=== PATIENT | male | born 1950 | race Two or more races ===

== ENCOUNTER 2019-11-09 20:30 | Inpatient (IN) | payer SELFPAY ==
[~2019-11-09] VITALS: Ht 157.5 cm; Wt 89.8 kg
[2019-11-09] MEDS ORDERED: AZITHROMYCIN 500 MG in DEXT 5% WATER 250 ML IV ONE (22:00)
[2019-11-09] MEDS ORDERED: CEFTRIAXONE 1 G PREMIX 50 ML IV ONE (22:00)
[2019-11-09] MEDS ORDERED: SODIUM CHLORIDE 0.9% 1000ML BAG (SEPSIS BOLUS) IV ONE (22:00)
[2019-11-09] MEDS ORDERED: SODIUM CHLORIDE 0.9% 1,000 ML IV ONE (22:14)
[2019-11-09] MEDS ORDERED: ACETAMINOPHEN 325MG TABLET PO ONE (22:15)
[2019-11-09 22:28] LABS: BG BASE EXCESS -2.1 mmol/L (-2.0-2.0); BG DEOXYHEMOGLOBIN 16.1 % (0.0-5.0); BG FRACTION INSPIRED OXYGEN 21; BG HCO3 ACT 20.4 mmol/L (22.0-26.0); BG METHEMOGLOBIN 0.3 % (0.0-1.5); BG OXYGEN SATURATION 83.7 % (92.0-98.5); BG OXYHEMOGLOBIN 82.6 % (94.0-97.0); BG PCO2 29.2 mmHg (35.0-45.0); BG PH 7.462 (7.350-7.450); BG PO2 46.2 mmHg (75.0-100.0); BG SAMPLE SITE RIGHT RADIAL; BG TOTAL HEMOGLOBIN 14.1 g/dL (12.0-18.0); BG VENT MODE ROOM AIR
[2019-11-09 23:24] LABS: BG BASE EXCESS -2.2 mmol/L (-2.0-2.0); BG DEOXYHEMOGLOBIN 5.6 % (0.0-5.0); BG FRACTION INSPIRED OXYGEN 70; BG HCO3 ACT 20.2 mmol/L (22.0-26.0); BG METHEMOGLOBIN 0.1 % (0.0-1.5); BG OXYGEN SATURATION 94.3 % (92.0-98.5); BG OXYHEMOGLOBIN 93.3 % (94.0-97.0); BG PCO2 28.9 mmHg (35.0-45.0); BG PH 7.462 (7.350-7.450); BG PO2 70.9 mmHg (75.0-100.0); BG SAMPLE SITE RIGHT RADIAL; BG TOTAL HEMOGLOBIN 14.8 g/dL (12.0-18.0); BG VENT MODE NASAL CANNULA
[2019-11-09 23:40] LABS: HEMATOCRIT. 39.9 % (42.0-52.0); HEMOGLOBIN. 13.6 g/dL (14.0-18.0); MEAN CORPUSCULAR HEMOGLOBIN 30.6 pg (28.0-32.0); MEAN PLATELET VOLUME 7.5 fl (7.4-10.4); PLATELET 275 x1000/uL (130-400); RED BLOOD CELL COUNT 4.44 mill/uL (4.7-6.1); RED CELL DISTRIBUTION WIDTH 14.8 % (11.6-14.6)
[2019-11-09 23:46] LABS: CHLORIDE 97 mEq/L (98-107)
[2019-11-09 23:47] LABS: CLARITY URINE CLEAR (CLEAR); COLOR URINE YELLOW (YELLOW); KETONES URINE TRACE (NEGATIVE); LEUKOCYTE ESTERASE URINE NEGATIVE (NEGATIVE); NITRITE URINE NEGATIVE (NEGATIVE); OCCULT BLOOD URINE 1+ (NEGATIVE); PROTEIN URINE 2+ (NEGATIVE); SPECIFIC GRAVITY URINE 1.021 (1.005-1.030)
[2019-11-09 23:50] LABS: INR 1.1; PARTIAL THROMBOPLASTIN TIME 34.2 sec (23.4-31.0); PROTHROMBIN TIME 11.5 sec (9.6-11.0)
[2019-11-10] MEDS ORDERED: ENOXAPARIN 80MG/0.8ML SYR SUBCUT ONE (00:30)
[2019-11-10] MEDS ORDERED: DEXAMETHASONE 10 MG/ML VIAL IV ONE (00:30)
[2019-11-10] MEDS ORDERED: CEFTRIAXONE 1 G PREMIX 50 ML IV SCH (00:45)
[2019-11-10] MEDS ORDERED: DIPHENHYDRAMINE 50MG/ML VIAL IV PRN (00:45)
[2019-11-10] MEDS ORDERED: GUAIFENESIN 200MG/10ML SUGAR FREE UDC PO PRN (00:45)
[2019-11-10] MEDS ORDERED: ONDANSETRON HCL 4MG/2ML INJ IV PRN (00:45)
[2019-11-10] MEDS ORDERED: HYDROCODONE/ACETAMINOPHEN 10/325MG TABLET PO PRN (00:45)
[2019-11-10] MEDS ORDERED: IPRATROPIUM/ALBUTEROL 0.5-3(2.5)MG/3ML NEB HHN PRN (00:45)
[2019-11-10] MEDS ORDERED: AZITHROMYCIN 500 MG in DEXT 5% WATER 250 ML IV SCH ×2 (00:45→23:00)
[2019-11-10] MEDS ORDERED: CLONIDINE 0.1MG TABLET PO PRN (00:45)
[2019-11-10] MEDS ORDERED: MORPHINE SULFATE 2 MG/ML CPJ (NOT FOR IM USE) IV PRN (00:45)
[2019-11-10] MEDS ORDERED: MAGNESIUM/ALUMINUM HYDROXIDE/SIMETHICONE 30ML UDC PO PRN (00:45)
[2019-11-10] MEDS ORDERED: ENOXAPARIN 40MG/0.4ML SYR SUBCUT SCH (00:45)
[2019-11-10] MEDS ORDERED: DOCUSATE SODIUM 100MG CAPSULE PO PRN (00:45)
[2019-11-10] MEDS ORDERED: HYDRALAZINE 20MG/ML VIAL IV PRN (00:45)
[2019-11-10] MEDS: LORAZEPAM 2MG/ML CPJ IV PRN (01:51)
[2019-11-10 03:42] LABS: ATYPICAL LYMPHOCYTES 2; PLATELET ESTIMATE NORMAL
[2019-11-10] MEDS: SODIUM CHLORIDE 0.9% INJ 3ML FLUSH IVF SCH ×3 (06:00→22:14)
[2019-11-10 10:00] VITALS: BP 130/67
[2019-11-10 12:00] VITALS: BP 108/68
[2019-11-10 16:00] VITALS: BP 112/67
[2019-11-10 20:00] VITALS: BP 110/73
[2019-11-10] MEDS ORDERED: CEFTRIAXONE 1,000 MG in DEXTROSE 5% WATER 50 ML IV SCH (22:00)
[2019-11-10] MEDS: CEFTRIAXONE 1,000 MG in DEXTROSE 5% WATER 50 ML IV SCH (22:14)
[2019-11-10] MEDS: AZITHROMYCIN 500 MG in DEXT 5% WATER 250 ML IV SCH (23:06)
[2019-11-11] VITALS: BP 118/73
[2019-11-11 04:00] VITALS: BP 104/69
[2019-11-11] MEDS: SODIUM CHLORIDE 0.9% INJ 3ML FLUSH IVF SCH ×3 (06:10→21:13)
[2019-11-11 07:35] LABS: EOSINOPHILS % 0.1 % (0.0-5.0); HEMATOCRIT. 38.5 % (42.0-52.0); HEMOGLOBIN. 13.2 g/dL (14.0-18.0); LYMPHOCYTES % 7.3 % (20.0-50.0); MEAN CORPUSCULAR HEMOGLOBIN 30.5 pg (28.0-32.0); MEAN CORPUSCULAR VOLUME 89.2 fL (80.0-94.0); MEAN PLATELET VOLUME 7.5 fl (7.4-10.4); MONOCYTES % 4.6 % (2.0-8.0); PLATELET 354 x1000/uL (130-400); RED BLOOD CELL COUNT 4.31 mill/uL (4.7-6.1); RED CELL DISTRIBUTION WIDTH 14.5 % (11.6-14.6)
[2019-11-11 07:57] LABS: CHLORIDE 105 mEq/L (98-107)
[2019-11-11 08:00] VITALS: BP 97/76
[2019-11-11] MEDS: ENOXAPARIN 40MG/0.4ML SYR SUBCUT SCH (09:04)
[2019-11-11 10:18] LABS: BG BASE EXCESS -3.2 mmol/L (-2.0-2.0); BG CARBOXYHEMOGLOBIN 0.6 % (0.5-1.5); BG DEOXYHEMOGLOBIN 11.6 % (0.0-5.0); BG FRACTION INSPIRED OXYGEN 60; BG HCO3 ACT 19.8 mmol/L (22.0-26.0); BG METHEMOGLOBIN 0.1 % (0.0-1.5); BG OXYGEN SATURATION 88.3 % (92.0-98.5); BG OXYHEMOGLOBIN 87.7 % (94.0-97.0); BG PCO2 30.3 mmHg (35.0-45.0); BG PH 7.433 (7.350-7.450); BG PO2 54.1 mmHg (75.0-100.0); BG SAMPLE SITE RIGHT RADIAL; BG TOTAL HEMOGLOBIN 14.8 g/dL (12.0-18.0); BG VENT MODE NASAL CANNULA
[2019-11-11 12:00] VITALS: BP 112/69
[2019-11-11] MEDS: DEXAMETHASONE 4MG TABLET PO SCH (13:34)
[2019-11-11 16:00] VITALS: BP 115/75
[2019-11-11] MEDS ORDERED: REMDESIVIR 200 MG in SODIUM CHLORIDE 0.9% 250 ML IV NR (18:00)
[2019-11-11 20:00] VITALS: BP 106/63
[2019-11-11] MEDS: CEFTRIAXONE 1,000 MG in DEXTROSE 5% WATER 50 ML IV SCH (21:13)
[2019-11-11] MEDS: AZITHROMYCIN 500 MG in DEXT 5% WATER 250 ML IV SCH (22:11)
[2019-11-11] MEDS: ACETAMINOPHEN 325MG TABLET PO PRN (22:25)
[2019-11-12] VITALS: BP 139/85
[2019-11-12 04:00] VITALS: BP 105/72
[2019-11-12] MEDS: SODIUM CHLORIDE 0.9% INJ 3ML FLUSH IVF SCH ×3 (05:41→21:09)
[2019-11-12] MEDS: ENOXAPARIN 40MG/0.4ML SYR SUBCUT SCH (08:10)
[2019-11-12] MEDS: DEXAMETHASONE 4MG TABLET PO SCH (08:10)
[2019-11-12 08:30] VITALS: BP 130/70
[2019-11-12 09:32] LABS: BG BASE EXCESS -2.9 mmol/L (-2.0-2.0); BG CARBOXYHEMOGLOBIN 0.2 % (0.5-1.5); BG DEOXYHEMOGLOBIN 10.2 % (0.0-5.0); BG FRACTION INSPIRED OXYGEN 80; BG HCO3 ACT 19.8 mmol/L (22.0-26.0); BG METHEMOGLOBIN 0.3 % (0.0-1.5); BG OXYGEN SATURATION 89.7 % (92.0-98.5); BG OXYHEMOGLOBIN 89.3 % (94.0-97.0); BG PCO2 29.4 mmHg (35.0-45.0); BG PH 7.447 (7.350-7.450); BG PO2 57.5 mmHg (75.0-100.0); BG SAMPLE SITE RIGHT BRACHIAL; BG VENT MODE MASK - SIMPLE
[2019-11-12 12:00] VITALS: BP 126/83
[2019-11-12 16:00] VITALS: BP 129/88
[2019-11-12] MEDS: REMDESIVIR 100 MG in SODIUM CHLORIDE 0.9% 250 ML IV SCH (17:01)
[2019-11-12 20:00] VITALS: BP 131/84
[2019-11-12] MEDS: CEFTRIAXONE 1,000 MG in DEXTROSE 5% WATER 50 ML IV SCH (21:09)
[2019-11-12] MEDS: AZITHROMYCIN 500 MG in DEXT 5% WATER 250 ML IV SCH (22:57)
[2019-11-13] VITALS: BP 137/97
[2019-11-13] MEDS: ACETAMINOPHEN 325MG TABLET PO PRN ×2 (02:03→17:10)
[2019-11-13] MEDS: LORAZEPAM 2MG/ML CPJ IV PRN (02:11)
[2019-11-13 04:00] VITALS: BP 114/68
[2019-11-13 06:12] LABS: HEMATOCRIT. 36.8 % (42.0-52.0); HEMOGLOBIN. 12.6 g/dL (14.0-18.0); MEAN CORPUSCULAR HEMOGLOBIN 30.8 pg (28.0-32.0); MEAN CORPUSCULAR VOLUME 89.9 fL (80.0-94.0); MEAN PLATELET VOLUME 7.1 fl (7.4-10.4); PLATELET 451 x1000/uL (130-400); RED CELL DISTRIBUTION WIDTH 14.7 % (11.6-14.6)
[2019-11-13 06:18] LABS: CHLORIDE 109 mEq/L (98-107)
[2019-11-13] MEDS: SODIUM CHLORIDE 0.9% INJ 3ML FLUSH IVF SCH ×4 (06:54→22:20)
[2019-11-13 08:30] VITALS: BP 115/72
[2019-11-13] MEDS: ENOXAPARIN 40MG/0.4ML SYR SUBCUT SCH ×2 (08:40→20:49)
[2019-11-13] MEDS: DEXAMETHASONE 4MG TABLET PO SCH (08:40)
[2019-11-13 12:30] VITALS: BP 129/82
[2019-11-13 16:00] VITALS: BP 120/78
[2019-11-13] MEDS: REMDESIVIR 100 MG in SODIUM CHLORIDE 0.9% 250 ML IV SCH (17:03)
[2019-11-13 17:52] LABS: PLATELET ESTIMATE INCREASED
[2019-11-13 20:00] VITALS: BP 157/71
[2019-11-13] MEDS: CEFTRIAXONE 1,000 MG in DEXTROSE 5% WATER 50 ML IV SCH (20:48)
[2019-11-13] MEDS: AZITHROMYCIN 500 MG in DEXT 5% WATER 250 ML IV SCH (21:53)
[2019-11-14] VITALS (7 sets, daily range): BP systolic 105–152; BP diastolic 55–93
[2019-11-14 06:31] LABS: BASOPHILS % 0.1 % (0.0-2.0); EOSINOPHILS % 0.2 % (0.0-5.0); HEMATOCRIT. 38.2 % (42.0-52.0); HEMOGLOBIN. 12.8 g/dL (14.0-18.0); LYMPHOCYTES % 7.5 % (20.0-50.0); MEAN CORPUSCULAR HEMOGLOBIN 30.1 pg (28.0-32.0); MEAN CORPUSCULAR VOLUME 89.8 fL (80.0-94.0); MONOCYTES % 5.6 % (2.0-8.0); NEUTROPHILS % 86.6 % (40.0-76.0); PLATELET 469 x1000/uL (130-400); RED BLOOD CELL COUNT 4.26 mill/uL (4.7-6.1); RED CELL DISTRIBUTION WIDTH 14.5 % (11.6-14.6)
[2019-11-14 06:35] LABS: CHLORIDE 111 mEq/L (98-107)
[2019-11-14] MEDS: DEXAMETHASONE 4MG TABLET PO SCH (09:41)
[2019-11-14] MEDS: ENOXAPARIN 40MG/0.4ML SYR SUBCUT SCH ×2 (09:42→20:57)
[2019-11-14] MEDS: SODIUM CHLORIDE 0.9% INJ 3ML FLUSH IVF SCH ×2 (15:26→21:00)
[2019-11-14] MEDS: REMDESIVIR 100 MG in SODIUM CHLORIDE 0.9% 250 ML IV SCH (17:29)
[2019-11-14] MEDS: CEFTRIAXONE 1,000 MG in DEXTROSE 5% WATER 50 ML IV SCH (21:00)
[2019-11-14] MEDS: LORAZEPAM 2MG/ML CPJ IV PRN (22:13)
[2019-11-14] MEDS: AZITHROMYCIN 500 MG in DEXT 5% WATER 250 ML IV SCH (22:14)
[2019-11-15 00:12] VITALS: BP 136/79
[2019-11-15 04:00] VITALS: BP 124/76
[2019-11-15] MEDS: SODIUM CHLORIDE 0.9% INJ 3ML FLUSH IVF SCH ×3 (06:04→22:32)
[2019-11-15 08:00] VITALS: BP 130/65
[2019-11-15 08:28] LABS: BG CARBOXYHEMOGLOBIN 0.3 % (0.5-1.5); BG DEOXYHEMOGLOBIN 8.7 % (0.0-5.0); BG FRACTION INSPIRED OXYGEN 60.0`; BG HCO3 ACT 20.5 mmol/L (22.0-26.0); BG METHEMOGLOBIN 0.2 % (0.0-1.5); BG OXYGEN SATURATION 91.3 % (92.0-98.5); BG OXYHEMOGLOBIN 90.8 % (94.0-97.0); BG PCO2 29.4 mmHg (35.0-45.0); BG PH 7.462 (7.350-7.450); BG PO2 60.6 mmHg (75.0-100.0); BG SAMPLE SITE RIGHT RADIAL; BG TOTAL HEMOGLOBIN 14.6 g/dL (12.0-18.0); BG VENT MODE MASK - SIMPLE
[2019-11-15] MEDS: DEXAMETHASONE 4MG TABLET PO SCH (08:30)
[2019-11-15] MEDS: ENOXAPARIN 40MG/0.4ML SYR SUBCUT SCH ×2 (08:31→22:32)
[2019-11-15 12:00] VITALS: BP 133/82
[2019-11-15 16:00] VITALS: BP 109/54
[2019-11-15] MEDS: REMDESIVIR 100 MG in SODIUM CHLORIDE 0.9% 250 ML IV SCH (18:06)
[2019-11-15 20:22] VITALS: BP 126/78
[2019-11-16] VITALS: BP 141/72
[2019-11-16 04:00] VITALS: BP 123/68
[2019-11-16] MEDS: SODIUM CHLORIDE 0.9% INJ 3ML FLUSH IVF SCH ×3 (06:26→21:34)
[2019-11-16 08:00] VITALS: BP 107/71
[2019-11-16] MEDS: ENOXAPARIN 40MG/0.4ML SYR SUBCUT SCH ×2 (08:27→21:34)
[2019-11-16] MEDS: DEXAMETHASONE 4MG TABLET PO SCH (08:27)
[2019-11-16 12:00] VITALS: BP 114/73
[2019-11-16 16:00] VITALS: BP 112/67
[2019-11-16 16:47] LABS: BG BASE EXCESS -0.1 mmol/L (-2.0-2.0); BG DEOXYHEMOGLOBIN 10.8 % (0.0-5.0); BG FRACTION INSPIRED OXYGEN 21; BG HCO3 ACT 22.6 mmol/L (22.0-26.0); BG METHEMOGLOBIN 0.2 % (0.0-1.5); BG OXYGEN SATURATION 89.1 % (92.0-98.5); BG PCO2 32.2 mmHg (35.0-45.0); BG PH 7.465 (7.350-7.450); BG PO2 54.1 mmHg (75.0-100.0); BG SAMPLE SITE RIGHT BRACHIAL; BG TOTAL HEMOGLOBIN 15.9 g/dL (12.0-18.0); BG VENT MODE ROOM AIR
[2019-11-16 20:00] VITALS: BP 120/78
[2019-11-17] VITALS: BP 116/72
[2019-11-17 04:00] VITALS: BP 95/56
[2019-11-17 08:00] VITALS: BP 130/78
[2019-11-17] MEDS: ENOXAPARIN 40MG/0.4ML SYR SUBCUT SCH (09:01)
[2019-11-17] MEDS: DEXAMETHASONE 4MG TABLET PO SCH (09:02)
[2019-11-17 12:00] VITALS: BP 102/66
[2019-11-17] MEDS ORDERED: ACETAMINOPHEN 325MG TABLET PO PRN (13:15)
[2019-11-17] MEDS ORDERED: GUAIFENESIN 200MG/10ML SUGAR FREE UDC PO PRN (13:15)
[2019-11-17] MEDS ORDERED: HYDRALAZINE 20MG/ML VIAL IV PRN (13:15)
[2019-11-17] MEDS ORDERED: CLONIDINE 0.1MG TABLET PO PRN (13:15)
[2019-11-17] MEDS ORDERED: DOCUSATE SODIUM 100MG CAPSULE PO PRN (13:15)
[2019-11-17] MEDS ORDERED: MAGNESIUM/ALUMINUM HYDROXIDE/SIMETHICONE 30ML UDC PO PRN (13:15)
[2019-11-17] MEDS ORDERED: ONDANSETRON HCL 4MG/2ML INJ IV PRN (13:15)
[2019-11-17] MEDS: SODIUM CHLORIDE 0.9% INJ 3ML FLUSH IVF SCH (14:00)
[2019-11-17 15:02] VITALS: BP 102/66
[2019-11-17 20:00] VITALS: BP 121/74
[2019-11-17] MEDS: ENOXAPARIN 100MG/ML SYR SUBCUT SCH (20:10)
[2019-11-18] MEDS: SODIUM CHLORIDE 0.9% INJ 3ML FLUSH IVF SCH ×3 (00:06→21:33)
[2019-11-18] MEDS: DIPHENHYDRAMINE 50MG/ML VIAL IV PRN ×2 (00:06→23:48)
[2019-11-18 00:26] VITALS: BP 97/61
[2019-11-18 04:00] VITALS: BP 105/63
[2019-11-18 08:00] VITALS: BP 132/85
[2019-11-18] MEDS: ENOXAPARIN 100MG/ML SYR SUBCUT SCH ×2 (08:26→21:33)
[2019-11-18] MEDS: DEXAMETHASONE 4MG TABLET PO SCH (08:26)
[2019-11-18 12:00] VITALS: BP 128/65
[2019-11-18 16:00] VITALS: BP 106/56
[2019-11-18 20:00] VITALS: BP 125/78
[2019-11-19] VITALS: BP 112/47
[2019-11-19 04:00] VITALS: BP 109/47
[2019-11-19] MEDS: SODIUM CHLORIDE 0.9% INJ 3ML FLUSH IVF SCH ×2 (05:12→14:00)
[2019-11-19 08:00] VITALS: BP 102/48
[2019-11-19] MEDS: ENOXAPARIN 100MG/ML SYR SUBCUT SCH (08:49)
[2019-11-19] MEDS: DEXAMETHASONE 4MG TABLET PO SCH (08:49)
[2019-11-19 10:38] LABS: BASOPHILS % 0.2 % (0.0-2.0); EOSINOPHILS % 0.1 % (0.0-5.0); HEMATOCRIT. 44.4 % (42.0-52.0); HEMOGLOBIN. 14.8 g/dL (14.0-18.0); LYMPHOCYTES % 14.5 % (20.0-50.0); MEAN CORPUSCULAR HEMOGLOBIN 30.6 pg (28.0-32.0); MEAN CORPUSCULAR VOLUME 91.8 fL (80.0-94.0); MEAN PLATELET VOLUME 7.1 fl (7.4-10.4); MONOCYTES % 5.1 % (2.0-8.0); NEUTROPHILS % 80.1 % (40.0-76.0); PLATELET 383 x1000/uL (130-400); RED BLOOD CELL COUNT 4.84 mill/uL (4.7-6.1)
[2019-11-19 10:53] LABS: CHLORIDE 107 mEq/L (98-107)
[2019-11-19 10:59] LABS: INR 1.1; PROTHROMBIN TIME 11.6 sec (9.6-11.0)
[2019-11-19 12:00] VITALS: BP 120/74
[2019-11-19 16:00] VITALS: BP 117/70
== END 2019-11-19 17:28 | disposition home or self-care (01) | DRG 720 ==
LOC: ER 20:30 → 7WST 11-10 00:30 → ENRESERV 11-10 08:27
PROVIDERS: ADMIT Internal Medicine; ATTEND Internal Medicine
PROC: XW033E5 Introduction of Remdesivir Anti-infective into Peripheral Vein, Percutaneous Approach, New Technology Group 5 (ICD-10-PCS; principal; 2019-11-11)
DX: A41.89 Other specified sepsis (principal); U07.1 COVID-19; J96.01 Acute respiratory failure with hypoxia; E87.3 Alkalosis; E44.1 Mild protein-calorie malnutrition; I51.7 Cardiomegaly; J12.89 Other viral pneumonia; B97.89 Other viral agents as the cause of diseases classified elsewhere; Z68.36 Body mass index [BMI] 36.0-36.9, adult; Z79.899 Other long term (current) drug therapy; Z79.1 Long term (current) use of non-steroidal anti-inflammatories (NSAID); Z79.2 Long term (current) use of antibiotics
CPT/HCPCS: 36415; 36600; 71045; 80048; 80053; 80076; 81003; 82375; 82728; 82805; 83605; 83880; 84145; 84484; 85025; 85379; 86140; 86850; 86900; 87635; 93005; 99285; J0456; J0696; J1100; J1200; J1650; J2060; J7030; J7050; J7060; J8540; Q9957